=== PATIENT | male | born 1945 | race Two or more races ===

== ENCOUNTER 2024-09-07 00:06 | Emergency (ER) | payer MEDICARE, MEDICAID, SELFPAY ==
[2024-09-07 00:09] VITALS: BMI 32.3
[2024-09-07 00:37] VITALS: BP 153/72; PULSE 64; RESP 16; TEMP 36.8; O2SAT 97; BMI 29.5
[2024-09-07 02:06] VITALS: BP 156/78; PULSE 80; RESP 18; TEMP 36.9; O2SAT 96
--- NOTE | 2024-09-07 04:58 | PD.EDSKIN ---
ED Skin Abcess FB-RME/HPI General Chief complaint: General Adult/Misc Complain Stated complaint: BLACK BITE L FOOT Time Seen by Provider: 09/07/24 02:29 Arrival date/time: 09/07/24 00:06 78M with history of HTN and DM for L foot black spider bite. Patient has no symptoms except localized pain. Patient just want to make sure nothing else had to be done. Limitations: no limitations Related Data Home Medications ?Medication ?Instructions ?Recorded ?Confirmed atorvastatin 20 mg tablet 20 mg PO DAILY 04/06/23 06/16/23 lisinopril 20 1 tab PO DAILY 04/06/23 06/16/23 mg-hydrochlorothiazide 12.5 mg tablet meclizine 25 mg tablet 25 mg PO TID PRN Dizziness 04/06/23 06/16/23 metformin 500 mg tablet 500 mg PO TID 04/06/23 06/16/23 Allergies Allergy/AdvReac Type Severity Reaction Status Date / Time No Known Allergies Allergy Verified 09/07/24 00:13 Review of Systems Integumentary/Breasts Skin/Breast: Reports as per HPI and Reports skin pain Past Medical History Past Medical History NEUROLOGIC: Negative Neurological Disorders, Cerebrovascular Accident, Seizures, Migraine or Traumatic Brain Injury CARDIAC: Positive Cardiac Disorders, Hypercholesterolemia and Hypertension; Negative Peripheral Vascular Disease, Congestive Heart Failure, Edema, Cellulitis or Deep Vein Thrombosis RESPIRATORY: Negative Chronic Obstructive Pulmonary Disease (COPD), Bronchitis, Pneumonia, Tuberculosis or Sleep Apnea GASTROINTESTINAL: Positive Gastrointestinal Disorders and Obesity; Negative Hepatitis, Gastrointestinal Bleed, Ulcerative Colitis, Irritable Bowel, Hemorrhoids or Gastroesophageal Reflux Disease GENITOURINARY: Negative Genitourinary Disorders or Renal Disease REPRODUCTIVE: Negative Fibroids MUSCULOSKELETAL: Positive Musculoskeletal Disorders and Arthritis; Negative Gout or Fractures ENT: Positive Cataracts (right eye); Negative Ear Infection ENDOCRINE: Positive Endocrine Disorders and Diabetes Mellitus Type 2; Negative Diabetes Mellitus Type 1 HEMATOLOGIC: Negative Blood Disorders PSYCHO/SOCIAL: Negative Depression or Anxiety OTHER HISTORY: Positive Hospitalization (surgery); Negative Autoimmune Disease, Shingles, Falls, Blood Transfusions, Blood Transfusion Reaction, Anesthesia Reactions, Organ Transplant, MRSA, Chicken Pox, Measles, Mumps, Rubella (Tajik Measles), Pertussis or Cancer Family History FAMILY HISTORY: Negative Family Psychiatric Problems, Family Respiratory Disorders, Family Cardiac Disorders, Family Gastrointestinal Problems, Family Cancer, Family Surgery or Family Anesthesia Reaction Surgical History SURGICAL: Positive Joint Replacement; Negative Cardiac Surgery, Pacemaker, Endocrine Surgery, Ear Surgery, Abdominal Surgery, Nephrectomy, Neurologic Surgery, Vasectomy or Organ Transplant Social History SMOKING STATUS: Never smoker ED Exam General Limitations: Present no limitations General appearance: Present alert and in no apparent distress Head Head exam: Present atraumatic Eye Eye exam: Present normal appearance, PERRL and EOMI ENT ENT exam: Present normal exam, normal oropharynx and mucous membranes moist Neck Neck exam: Present normal inspection, full ROM and trachea midline Chest Chest inspection: Present normal inspection and symmetric chest wall rise Respiratory Respiratory exam: Present normal lung sounds bilaterally Cardiovascular Cardiovascular exam: Present regular rate, normal rhythm and normal heart sounds Abdominal Exam Abdominal exam: Present soft and normal bowel sounds Extremities Exam Extremities exam: Present full ROM Expanded Lower Extremity Exam Foot/toe exam: Present full ROM and erythema (Mild L dorsal foot) Back Exam Back exam: Present normal inspection and full ROM Neurological Exam Neurological exam: Present alert, oriented X3 and CN II-XII intact Psychiatric Psychiatric exam: Present normal affect and normal mood Skin Skin exam: Present warm, dry, intact and normal color Course Quality Measures none Vital Signs Vital signs: Vital Signs Temperature 98.2 F 09/07/24 00:37 Pulse Rate 64 09/07/24 00:37 Respiratory Rate 16 09/07/24 00:37 Blood Pressure 153/72 H 09/07/24 00:37 Pulse Oximetry (%) 97 09/07/24 00:37 Oxygen Delivery Method Room Air 09/07/24 00:37 O2 at 97% on RA and WNLs Skin / Abscess / Foreign Body MDM Narrative MDM Narrative:: 78M with history of HTN and DM for L foot black spider bite. Patient has no symptoms except localized pain. Patient just want to make sure nothing else had to be done. Physical exam reveals minimal redness on L dorsal foot. Gait normal. Patient is afebrile, calm, and alert. [employer] given. Patient data External records reviewed:: [facility] previous records Clinical information provided by:: patient Social determinants that could affect healthcare access:: none Patient has the following chronic illnesses:: DM and HTN How is presenting disease/condition affected by chronic disease/condition?: no chronic disease Evaluation data The following diagnostics were reviewed and interpreted by me:: other (specify) (none) Lab and/or radiology exams considered but not ordered:: not ordered Interpretation Summary: n/a Medications / Prescriptions Medications or Prescriptions considered but not ordered:: not ordered Medication administrations:: n/a Consultations Consultation(s) initiated? (list below): No Diagnosis Skin/Abscess Differential Diagnosis: abscess of skin or subcutaneous tissue, viral exanthem, dermatophytosis, urticaria, herpes zoster, allergic reaction to drug, cellulitis, eczema, insect bites, impetigo, contact dermatitis and other (spider bite) Most likely diagnosis given after review of the tests above:: spider bite Admission Indicated Admission indicated?: not indicated Admission Request Was there a request for admission?: No Disposition Plan Disposition Plan: Discharge Discharge Attestation Discharge Attestation: The patient and all family members were given an opportunity to ask questions and understood the discharge instructions. Discharge instructions specifically effects, indications for sooner follow up or return to the emergency department, and the expected course of current diagnosis. Patient condition: Stable Discharge Plan Plan Patient Disposition: HOME (Self Care) Discharge Disposition comment: Stable Prescriptions/Referrals Prescriptions/Med Rec: No Action metformin 500 mg tablet 500 mg PO TID Patient Comments: TAKE 1 TABLET BY MOUTH THREE TIMES DAILY atorvastatin 20 mg tablet 20 mg PO DAILY Patient Comments: TAKE 1 TABLET BY MOUTH EVERY DAY lisinopril-hydrochlorothiazide 20-12.5 mg tablet 1 tab PO DAILY Patient Comments: TAKE 1 TABLET BY MOUTH EVERY DAY meclizine 25 mg tablet 25 mg PO TID PRN (Reason: Dizziness) Patient Comments: TAKE 1 TABLET BY MOUTH THREE TIMES DAILY NEEDED Problem List Clinical Impression: Spider bite Patient/Caregiver Discharge Instructions Education Materials: ED Black Spider Bite Additional Instructions: Please follow-up with PCP within 24-48 hours and return immediately if symptoms worsen. NSAIDs like ibuprofen tend to work better for this type of pain. Print Language: Urdu Stand Alone Forms: Patient Portal Info Letter RADHA/MONIKA Supervising Physician RADHA/MONIKA Supervising Physician: Dr. Navarrete
== END 2024-09-07 02:42 | disposition home or self-care (01) ==
LOC: SERX 02:58
PROVIDERS: Emergency Provider Emergency Medicine; PCP Internal Medicine
DX: T63.311A Toxic effect of venom of black widow spider, accidental (unintentional), initial encounter (principal); M79.672 Pain in left foot
CPT/HCPCS: 99283

== ENCOUNTER → 2024-09-18 | Outpatient (CLI) | payer MEDICARE, MEDICAID, SELFPAY ==
[2024-09-18 09:30] LABS: Basophils # (Auto) 0.0 Thou/mm3 (0.0-0.2); Basophils % (Auto) 0 % (0-2.5); Eosinophils # (Auto) 0.0 Thou/mm3 (0.0-0.5); Eosinophils % (Auto) 1 % (0-10); Hematocrit 43.7 % (41.0-53.0); Hemoglobin 14.8 g/dL (13.5-16.0); Immature Granulocytes Auto 0.01 Thou/mm3 (0.00-0.00); Lymphocytes # (Auto) 1.7 Thou/mm3 (1.0-4.8); Lymphocytes % (Auto) 34 % (10-50); Mean Corpuscular HGB Conc 33.9 g/dl (31.0-37.0); Mean Corpuscular Hemoglobin 29.5 pg (25.0-35.0); Mean Corpuscular Volume 87 fL (80-100); Monocytes # (Auto) 0.4 Thou/mm3 (0.0-0.8); Monocytes % (Auto) 8 % (0-12); Neutrophils # (Auto) 2.8 Thou/mm3 (1.8-7.7); Neutrophils % (Auto) 57 % (37-80); Nucleated Red Blood Cell # 0.00 Thou/mm3 (0.00-0.00); Nucleated Red Blood Cell % 0 /100 WBC (0); Platelet Count 283 Thou/mm3 (140-440); RDW Standard Deviation 39.7 fL (35.1-43.9); Red Blood Count 5.01 Miln/mm3 (4.50-5.90); White Blood Count 5.0 Thou/mm3 (3.8-10.6)
[2024-09-18 09:39] LABS: Glucose Estimated Average 163 mg/dL (80-131); Hemoglobin A1C 7.3 % Hgb (4.8-6.0)
[2024-09-18 09:44] LABS: Vitamin D 25 Hydroxy Total 40.9 ng/mL (7.3-40.2)
[2024-09-18 10:02] LABS: Alanine Aminotransferase 19 U/L (10-49); Albumin, Serum 4.5 gm/dL (3.4-4.8); Albumin/Globulin Ratio 1.7 (1.2-2.2); Alkaline Phosphatase 106 U/L (46-116); Anion Gap 9 (7-16); Aspartate Amino Transferase 14 U/L (0-34); BUN/Creatinine Ratio 19 Ratio (12-20); Bilirubin,Total 0.8 mg/dL (0.3-1.2); Blood Urea Nitrogen 15 mg/dL (9-23); Calcium 9.4 mg/dL (8.3-10.6); Calcium (Corrected) 9.4 mg/dL (8.5-10.1); Carbon Dioxide 26.2 mMol/L (20.0-31.0); Cardiac Risk Estimate 3.1 RATIO (4.0-6.7); Chloride 103 mMol/L (98-107); Cholesterol 119 mg/dL (132-200); Creatinine (Component) 0.8 mg/dL (0.6-1.3); Free T4 (Free Thyroxine) 1.45 ng/dL (0.89-1.76); Globulin 2.6 gm/dL (2.3-3.5); Glucose 166 mg/dL (74-106); HDL Cholesterol 39 mg/dL (40-60); LDL Cholesterol,Calculated 68 mg/dL (0-130); Osmolality,Calculated 280 (275-295); Potassium 4.3 mMol/L (3.4-5.1); Sodium 138 mMol/L (136-145); Thyroid Stimulating Hormone 2.46 uIU/mL (0.55-4.78); Total Protein 7.1 gm/dL (5.7-8.2); Triglycerides 59 mg/dL (30-150); eGFR > 60 See Note
[2024-09-18 14:23] LABS: Prostate Specific Antigen 5.49 ng/mL (0-4.00)
== END | disposition home or self-care (01) ==
LOC: COPL 08:14
PROVIDERS: PCP Internal Medicine; Referring Provider Internal Medicine; Visit Provider Internal Medicine
DX: I11.0 Hypertensive heart disease with heart failure (principal); E11.9 Type 2 diabetes mellitus without complications; N40.1 Benign prostatic hyperplasia with lower urinary tract symptoms; E55.9 Vitamin D deficiency, unspecified
CPT/HCPCS: 36415; 80053; 80061; 82306; 83036; 84153; 84439; 84443; 85025

== ENCOUNTER → 2024-12-02 | Outpatient (CLI) | payer MEDICARE, MEDICAID, SELFPAY ==
--- NOTE | 2024-12-02 13:12 | XR_ITS ---
Examination: Shoulder, right, 3 views Technique: Shoulder AP internal rotation, AP external rotation, Y view shoulder, 3 views Exam date and time : December 02, 2024, 1324 hours INDICATIONS: Patient fell 1 month ago with tubes of the shoulder, FINDINGS: Moderate to advanced osteoarthritis glenohumeral joint No fracture or shoulder dislocation IMPRESSION: Moderate to advanced osteoarthritis glenohumeral joint
== END | disposition home or self-care (01) ==
LOC: CDIM 13:08
PROVIDERS: Referring Provider Internal Medicine; Visit Provider Internal Medicine
DX: M19.011 Primary osteoarthritis, right shoulder (principal); S49.91XA Unspecified injury of right shoulder and upper arm, initial encounter; W19.XXXA Unspecified fall, initial encounter
CPT/HCPCS: 73030